=== PATIENT | female | born 1945 | race Caucasian/White ===

== ENCOUNTER → 2025-01-10 | Outpatient (REF) | payer MEDICARE, BC ==
[2025-01-10 18:35] LABS: IRON (FE) 61.0 UG/DL (50-170)
[2025-01-10 18:36] LABS: PERCENT SATURATION 16.0 % (13.2-45.0)
== END ==
LOC: M LAB REF 17:49
PROVIDERS: ATTEND Nurse Practitioner Family
DX: D50.9 Iron deficiency anemia, unspecified (principal)